=== PATIENT | female | born 1945 | race Caucasian/White ===

== ENCOUNTER 2020-06-27 06:00 | Day surgery (SDC) | payer MEDICARE, SELFPAY ==
[2020-06-20 10:19] VITALS: BMI 29.9
--- NOTE | 2020-06-25 15:37 | MHC.SHP ---
Pre-Procedural Eval Section A The patient is an INPATIENT: No Changes since office visit: No Cold of Flu in the past 2 weeks, No New Medical Problems, No Changes in Medication and No Patient answered all questions The History & Physical has been completed within 30 days and I have reviewed it.: Yes Section B Chief Complaint: HALLUX RIGHT FOOT,HAMMER TOE Allergies: Allergies Allergy/AdvReac Type Severity Reaction Status Date / Time adhesive tape AdvReac Itching Verified 06/20/20 10:17 erythromycin base AdvReac headache, Verified 06/20/20 10:17 Vomiting Plan Patient has been examined and remains a candidate for the planned procedure
--- NOTE | 2020-06-26 12:34 | HO.ANESPROP2 ---
Documented by User: Amy Deutsch 06/26/20 12:43 HPI - Anesthesia Eval Consult details Narrative: 74yo F for Bunionectomy,Right Tailors,Hammertoe right 5th,Exostosis right 5th DIPJ PCP cleared PMFSH Past Medical History Medical History HTN (hypertension) Hypothyroidism No history of cellulitis Surgical History Surgical History H/O cardiac catheterization Hx of appendectomy Hx of bilateral breast reduction surgery Hx of bilateral cataract extraction Hx of cholecystectomy Social History Social History Are you a primary animal care technician to a significant other at home: No Do you presently have visiting nurse or other home services: No Smoking Status: Never smoker Second Hand Smoke Exposure: No Use of substances other than those prescribed or required for medical reasons: No Have you been hit, kicked, punched, or otherwise hurt by someone within the past year? If so, by whom?: No Advance Directives: No Advance Directives Information Provided: No Advance Directives on File: No Recently lost weight without trying: No Meds Allergies Allergy/AdvReac Type Severity Reaction Status Date / Time adhesive tape AdvReac Itching Verified 06/20/20 10:17 erythromycin base AdvReac headache, Verified 06/20/20 10:17 Vomiting Home Medications Medication Instructions Recorded Confirmed Type levothyroxine 100 mcg PO DAILY 06/20/20 06/20/20 History lisinopril 5 mg PO DAILY 06/20/20 06/20/20 History Exam Exam Date and Time: June 26, 2020 1234 Height,Weight and Vital Signs: Height 5 ft 3.5 in Weight 78.018 kg Pertinent Lab Results Pertinent Lab Results: 05/28/20 CBC and BMP WNL, except platelets low @ 118 from outside provider Narrative Narrative: EKG 06/12/20: SR, LAD, Incomplete RBBB, Nonspecific anterior T wave changes, low volt QRS Assessment and Plan Assessment Anesthesia Assessment: Chart Reviewed Documented by User: Angeline Saenz 06/27/20 07:29 PMFSH Past Medical History Medical History HTN (hypertension) Hypothyroidism No history of cellulitis Surgical History Surgical History H/O cardiac catheterization Hx of appendectomy Hx of bilateral breast reduction surgery Hx of bilateral cataract extraction Hx of cholecystectomy Social History Social History Are you a primary animal care technician to a significant other at home: No Do you presently have visiting nurse or other home services: No Smoking Status: Never smoker Second Hand Smoke Exposure: No Use of substances other than those prescribed or required for medical reasons: No Have you been hit, kicked, punched, or otherwise hurt by someone within the past year? If so, by whom?: No Advance Directives: No Advance Directives Information Provided: No Advance Directives on File: No Recently lost weight without trying: No Meds Allergies Allergy/AdvReac Type Severity Reaction Status Date / Time adhesive tape AdvReac Itching Verified 06/20/20 10:17 erythromycin base AdvReac headache, Verified 06/20/20 10:17 Vomiting Home Medications Medication Instructions Recorded Confirmed Type levothyroxine 100 mcg PO DAILY 06/20/20 06/20/20 History lisinopril 5 mg PO DAILY 06/20/20 06/20/20 History Exam Airway Mallampati Class: II TM Dist: >3cm Neck ROM: Full Loose/Missing/Broken Teeth: No Heart: RRR Lungs: CTA
--- NOTE | 2020-06-26 15:30 | HP_ITS ---
DATE OF SERVICE: 06/27/2020 PROPOSED DATE OF SURGERY: June 27, 2020. PREOPERATIVE DIAGNOSES: 1. Hallux rigidus, right first MTP joint. 2. Hammertoe, right fifth toe. 3. Exostosis, right 5th toe, DIP joint. PLANNED PROCEDURES: 1. Guzmán bunionectomy of the right foot. 2. Hammertoe repair of the right fifth toe. 3. Condylectomy on the medial aspect of the right 5th DIP joint. PLANNED ANESTHESIA: MAC anesthesia. 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 These conditions have been present over the past several years and have progressively worsened. Her pain is aggravated by shoe gear and walking activity. Conservative treatment consisting of altered shoe gear as well as accommodative padding has proven ineffective and the patient is now requesting surgical treatment. PAST MEDICAL HISTORY: Remarkable for thyroid disease, headaches, history of gallbladder disease, arthritis. CURRENT MEDICATIONS: The patient is taking levothyroxine 100 mcg daily and also taking calcium with vitamin D supplement. ALLERGIES: THE PATIENT HAS NEGATIVE REACTION TO ERYTHROMYCIN, BIAXIN, Z-MAHSA. FAMILY HISTORY: Significant for history of arthritis, diabetes, hypertension. SOCIAL HISTORY: The patient relates she quit smoking in 2018, denies use of any recreational drugs. The patient does drink 1 to 2 cups of coffee per day and relates occasional alcohol consumption. PODIATRIC PHYSICAL EXAMINATION: VASCULAR EXAM: The patient displays +2/4 pulse of both the DP and PT arteries bilateral with normal cap refill time noted bilateral feet. NEUROLOGIC EXAM: Reveals intact sensation bilateral. DERMATOLOGIC EXAM: Reveals keratotic lesion located between the right fourth and fifth toes. Otherwise, skin is intact. ORTHOPEDIC EXAM: Reveals hammertoe contracture, bilateral second through fifth toes, arthritic bunion deformity with painful limited motion bilateral first metatarsophalangeal joint. The patient was seen in my office most recently on June 11, 2020. Preoperative informed consent was obtained from the patient that day. The patient has been instructed of all potential risks and complications and is compliant with surgical treatment. Preoperative medical clearance will be provided by the patient's primary care physician, Dr. Laguerre. DONNA Madrigal/JERSON / [id number] ROSALES
[2020-06-27] VITALS (7 sets, daily range): BP systolic 76–107; BP diastolic 45–79; PULSE 62–77; RESP 16; TEMP 36.1–36.7; O2SAT 95–98
[2020-06-27] MEDS: Lactated Ringers 1,000 ML 100 ML IVCONT (06:44)
[2020-06-27] MEDS: ceFAZolin Sodium/Dextrose,Iso 2 GM/50 ML PIGGYBACK IV (06:44)
--- NOTE | 2020-06-27 07:29 | HO.ANESPROP2 ---
[facility] Past Medical History Medical History HTN (hypertension) Hypothyroidism No history of cellulitis Surgical History Surgical History H/O cardiac catheterization Hx of appendectomy Hx of bilateral breast reduction surgery Hx of bilateral cataract extraction Hx of cholecystectomy Social History Social History Are you a primary director of managed care to a significant other at home: No Do you presently have visiting nurse or other home services: No Smoking Status: Never smoker Second Hand Smoke Exposure: No Use of substances other than those prescribed or required for medical reasons: No Have you been hit, kicked, punched, or otherwise hurt by someone within the past year? If so, by whom?: No Advance Directives: No Advance Directives Information Provided: No Advance Directives on File: No Recently lost weight without trying: No Meds Allergies Allergy/AdvReac Type Severity Reaction Status Date / Time adhesive tape AdvReac Itching Verified 06/20/20 10:17 erythromycin base AdvReac headache, Verified 06/20/20 10:17 Vomiting Home Medications Medication Instructions Recorded Confirmed Type levothyroxine 100 mcg PO DAILY 06/20/20 06/20/20 History lisinopril 5 mg PO DAILY 06/20/20 06/20/20 History Exam Exam Date and Time: June 27, 2020 0729 Height,Weight and Vital Signs: Height 5 ft 3.5 in Weight 78.018 kg Last Vital Signs Temp 98.1 F 06/27/20 06:32 Pulse 77 06/27/20 06:32 Resp 16 06/27/20 06:32 BP 107/79 06/27/20 06:32 Pulse Ox 95 06/27/20 06:32 Assessment and Plan Assessment Anesthesia Assessment: Anesthesia Plan Discussed, PAT Visit and Chart Reviewed Final Anesthetic Review NPO: Yes ASA Class: III Final Preanesthetic Review: No Changes in Pt Med Stat, Meds/Allgs Chart Reviewed, Consent Obtained/Reviewed and Anes Risks/Benef Reviewed Patient Risk: Low Procedure Risk: Low Anesthetic Plan Anesthetic Plan: MAC: Disposition: Standard PACU
--- NOTE | 2020-06-27 08:35 | P.BOP_ITS ---
Brief Operative Note Date of procedure: 06/27/20 Pre-op diagnosis: Hallux rigidus right, hammertoe right fifth toe, exostosis right 5th dipj Post-op diagnosis: same Procedure: Blanc bunionectomy right, hammertoe repair right 5th toe, condyle ctomy right 5th dipj Surgeon: Lowell Jacome Anesthesia: MAC [employer] Liaison Officer: Miranda Galo Estimated blood loss (mL): 1.0 Tourniquet time (min): 37 Condition: stable Disposition: PACU
--- NOTE | 2020-06-27 08:38 | MHC.SHP ---
Pre-Procedural Eval Section B Chief Complaint: HALLUX RIGHT FOOT,HAMMER TOE Allergies: Allergies Allergy/AdvReac Type Severity Reaction Status Date / Time adhesive tape AdvReac Itching Verified 06/20/20 10:17 erythromycin base AdvReac headache, Verified 06/20/20 10:17 Vomiting Plan Patient has been examined and remains a candidate for the planned procedure
--- NOTE | 2020-06-27 09:55 | HO.POSTANES ---
Post Anesthesia Evaluation Post Anesthesia Evaluation Vital Signs: Vital Signs Temp Pulse Resp BP Pulse Ox 06/27/20 09:23 97.4 F 64 16 98 06/27/20 09:08 62 16 103/62 98 06/27/20 08:53 65 16 93/57 L 97 06/27/20 08:48 64 16 94/55 L 97 06/27/20 08:43 64 16 83/51 L 98 06/27/20 08:38 96.9 F 65 16 76/45 L 98 06/27/20 06:32 98.1 F 77 16 107/79 95 Anesthesia: Monitored Mental Status: Awake Pain Control: Satisfactory Nausea/Vomiting: None Hydration: Adequate Anesthesia-Related Issues: No Anes. Related Issues
--- NOTE | 2020-07-01 14:02 | OP_ITS ---
SURGEON: Lowell Jacome DPM PREOPERATIVE DIAGNOSIS: 1. Hallux rigidus, right first metatarsophalangeal joint. 2. Hammertoe, right fifth toe. 3. Exostosis medial of right 5th toe distal interphalangeal joint. POSTOPERATIVE DIAGNOSIS: 1. Hallux rigidus, right first metatarsophalangeal joint. 2. Hammertoe, right fifth toe. 3. Exostosis medial of right 5th toe distal interphalangeal joint. PROCEDURE PERFORMED: 1. Su bunionectomy of the right foot. 2. Hammertoe repair, right fifth toe. 3. Condylectomy medial of right 5th toe distal interphalangeal joint. ESTIMATED BLOOD LOSS: COMPLICATIONS: ANESTHESIA: Consisted of local administration of a total of 15 cc of an equal mix of 2% lidocaine with epinephrine 1:100,000 of 0.5% Marcaine plain. Intravenous sedation was provided by the Anesthesia Department. ANESTHESIOLOGIST: Dr. Oden. Supriya ASSISTANTS: Miranda Galo DPM SPECIMENS: INTRODUCTION: The patient was brought to the operating room, placed on the operating table in the supine position. After having been suitably anesthetized with local infiltrative anesthesia, the right lower extremity was then prepped and draped in usual sterile manner. Please note that prior to the start of the procedures, the right foot was exsanguinated utilizing an Esmarch bandage and right ankle tourniquet was inflated to 250 mmHg pressure for the duration of the procedures. SU BUNIONECTOMY OF THE RIGHT FOOT: Attention was directed to the dorsal aspect of the right first metatarsophalangeal joint, where an incision of approximately 6.5 cm in length was effected centered over the dorsum of the right first metatarsophalangeal joint. The incision was deepened in the same plane and hemostasis was acquired as necessary. The skin margins were underscored and retracted. A dorsal linear capsule incision was then effected, and the capsule and periosteum was underscored and retracted. Please note that there was a large shelf of bone along both the dorsal aspect of the first metatarsal head as well as base of the proximal phalanx. Utilizing sagittal saw, the hypertrophic bone and diseased cartilage was gradually remodeled and removed from both the first metatarsal head and base of the proximal phalanx. The wound was irrigated. The first intermetatarsal space was exposed via blunt and sharp dissections. A lateral capsulotomy and adductor tenotomy were performed via sharp dissection. Then utilizing a power reciprocating rasp, the remaining bone was rasped smooth. The wound was irrigated. Bone wax was used to pack the exposed cancellous bone. The capsule was closed with 3-0 Vicryl. One half of the 2 cm x 3 cm AmnioFix was placed inside the capsule during closure. The second half was placed in subcutaneous tissue, which was closed with 4-0 Maxon subcuticular. A 4-0 nylon was then utilized to reinforce the skin margins as well. HAMMERTOE REPAIR OF RIGHT FIFTH TOE: Attention was directed to the dorsal lateral aspect of the right fifth toe. Incision approximately 2 cm length was effected centered over the dorsum of the right fifth toe proximal interphalangeal joint. Incision was deepened in same plane and hemostasis was acquired as necessary. The skin margins were underscored and retracted. A transverse incision was effected through the extensor tendon complex at the level of the PIP joint. The extensor tendon was underscored and retracted. The hypertrophic head of the proximal phalanx was delivered from the wound and then this head was resected utilizing a sagittal saw. The wound was irrigated. The extensor tendon was coapted and maintained utilizing 3-0 Vicryl. Skin margins were closed with 4-0 nylon. CONDYLECTOMY OF MEDIAL RIGHT 5TH TOE DISTAL INTERPHALANGEAL JOINT: An incision approximately 1.5 cm length was effected on the medial aspect of the right 5th toe distal interphalangeal joint just plantar to the medial nail plate and nail fold. The incision was deepened down to bone and the periosteum was underscored and retracted. Utilizing a power drill, the hypertrophic bone from the medial aspect of the right 5th toe distal interphalangeal joint and base of the distal phalanx was resected. The wound was irrigated. The skin margins were closed with 4-0 nylon. CONCLUSION: At the conclusion of these procedures, the operative sites were injected with a total of 5 mL Marcaine, 0.5% plain, 1 mL of dexamethasone phosphate. Sterile Xeroform was applied to the right 5th toe, 1 inch Conform also to the 5th toe. Sterile Betadine-soaked gauze, Kerlix, fluffs, and 4 inch Conform were applied to the remainder of the foot. The patient tolerated surgery and anesthesia well and left the operating room via cart to the recovery room after the tourniquet was deflated and normal blood flow was reestablished to the right lower extremity. FINAL DISPOSITION: The patient is discharged home with instructions for self-care and include the followin. To keep the dressings dry, clean, and intact. 2. To keep the right leg elevated with ice above the ankle or in the popliteal fossa. 3. To take all medications as prescribed. 4. To limit activity to minimum. 5. To always use surgical shoe and crutches when ambulating. 6. To contact Dr. Jacome if any questions or problems arise. 7. Lastly, the patient already has prescriptions at home for ibuprofen 600 mg 1 p.o. t.i.d. p.c., gabapentin 300 mg total #10, 1 p.o. daily at bedtime, oxycodone 5 mg total #20, 1 p.o. q.6h p.r.n. pain. DONNA Madrigal/JERSON / [id number]
== END 2020-06-27 23:59 | disposition home or self-care (01) ==
PROVIDERS: PCP Internal Medicine Endocrinology, Diabetes & Metabolism; Visit Provider Podiatrist
PROC: (CPT 28292; principal; 2020-06-27 07:30)
DX: M20.21 Hallux rigidus, right foot (principal); M20.41 Other hammer toe(s) (acquired), right foot; M25.774 Osteophyte, right foot; I10 Essential (primary) hypertension; Z79.899 Other long term (current) drug therapy; Z88.1 Allergy status to other antibiotic agents; Z91.040 Latex allergy status
CPT/HCPCS: 28292; 28285; 28153; 88304; 88311; J0690; J1100; J2250; J3010; Q4100

== ENCOUNTER 2020-09-26 09:00 | Outpatient (RCR) | payer MEDICARE, SELFPAY ==
[2020-08-06 15:06] VITALS: BP 131/79
== END 2020-09-26 13:16 | disposition other institution (70) ==
LOC: HO.PT 09:00
PROVIDERS: Visit Provider Podiatrist
DX: M20.21 Hallux rigidus, right foot (principal)
CPT/HCPCS: 97110; 97140; 97150; 97161; 97530

== ENCOUNTER 2021-06-03 04:29 | Emergency (ER) | payer MEDICARE, SELFPAY ==
--- NOTE | ~2021-06-03 | XR_ITS ---
EXAMINATION: XR CHEST CLINICAL INFORMATION: Cough and shortness of breath COMPARISON: None TECHNIQUE: Frontal view of the chest was obtained. FINDINGS: Normal symmetric lung volumes. No parenchymal consolidation. No pleural effusion. No pneumothorax. Cardiomediastinal silhouette and pulmonary vascularity are within normal limits. Aorta is atherosclerotic. No acute osseous abnormalities. XR/XR chest 1V IMPRESSION: No acute findings
[2021-06-03 04:40] VITALS: BP 128/80; PULSE 104; RESP 20; TEMP 36.4; O2SAT 95; BMI 29.9
[2021-06-03 05:31] LABS: Strep A Nucleic Acid Negative (Negative)
[2021-06-03 05:35] LABS: COVID-19 Test Negative (Negative); IDNOW Serial# 9DD0AD1C
--- NOTE | 2021-06-03 07:14 | ED_ITS ---
HPI - URI/Sore Throat General Chief Complaint: Upper Respiratory Symptoms Stated Complaint: Sore throat,Cough,congestion Time Seen by Provider: 06/03/21 07:02 Source: patient Mode of arrival: ambulatory Limitations: no limitations History of Present Illness MD elicited complaint: cough and sore throat Onset (ago): day(s) (5) Consistency: progressively worsening Severity: moderate Description of mucous: clear Able to tolerate fluids by mouth: Yes Exacerbating factors: swallowing Relieving factors: nothing Associated symptoms: rhinorrhea, sore throat and cough Treatments prior to arrival: none Related Data Home Medications Medication Instructions Recorded Confirmed levothyroxine 100 mcg capsule 100 mcg PO DAILY 06/20/20 06/20/20 lisinopril 5 mg tablet 5 mg PO DAILY 06/20/20 06/20/20 Previous Rx's Medication Instructions Recorded amoxicillin 500 mg tablet 500 mg PO BID 10 Days #20 tab 06/03/21 Allergies Allergy/AdvReac Type Severity Reaction Status Date / Time adhesive tape AdvReac Itching Verified 06/20/20 10:17 erythromycin base AdvReac headache, Verified 06/20/20 10:17 Vomiting Review of Systems Review of Systems: Constitutional : no Fever, no Chills, no fatigue, no Mal aise ENT/Mouth : positive sore throat, positive runny nose Eyes: No Discharge Cardiovascular : No Chest Pain, No SOB Respiratory : pos Cough, No Sputum Gastrointestinal : No Nausea, No Vomiting, No Diarrhea Genitourinary : No Dysuria, No Urinary Frequency Musculoskeletal : no Myalgia Skin : No rash Neuro : No Headache PMFSH Past Medical History Attestation statement: The following information was validated with the patient. Medical History HTN (hypertension) Hypothyroidism No history of cellulitis Surgical History H/O cardiac catheterization Hx of appendectomy Hx of bilateral breast reduction surgery Hx of bilateral cataract extraction Hx of cholecystectomy Social History Social History Are you a primary ambulatory care coordinator to a significant other at home: No Do you presently have visiting nurse or other home services: No Second Hand Smoke Exposure: No Advance Directives: No Advance Directives Information Provided: No Physical Exam Vital Signs: Vital Signs: Last Vital Signs Temp 97.5 F 06/03/21 04:40 Pulse 104 H 06/03/21 04:40 Resp 20 06/03/21 04:40 BP 128/80 06/03/21 04:40 Pulse Ox 95 06/03/21 04:40 Body Mass Index 29.9 Appearance: Alert. Oriented X3. No acute distress. Eyes: Pupils equal, round and reactive to light. ENT: Pharynx moderate erythema with mild edema no exudates, uvula midline, normal voice Neck: Normal inspection. Neck supple. CVS: Normal heart rate and rhythm. Pulses normal. Respiratory: No respiratory distress. Breath sounds normal. Abdomen: Soft and nontender. Skin: Skin warm and dry. Normal skin color. Normal skin turgor. Extremities: No lower extremity edema. No calf ttp Neuro: Oriented X 3. No motor deficit. No sensory deficit. MDM - URI/Sore Throat MDM Narrative Medical decision making narrative: 75 yo female with sore throat and cough since VS stable no hypoxia, no CP/no sick contacts. Suspect pharyngitis. She has clear lungs will start on amoxicillin and refer to PCP. CXR and COVID swab negative prior to evaluation Lab Data Labs: Lab Results 06/03/21 06/03/21 Range/Units 05:15 05:19 COVID-19 (KAYLEN) Negative (Negative) COVID-19 Clin Com See Note S. pyogenes GrpA WILVER Negative (Negative) Discharge Plan Discharge Clinical Impression: Pharyngitis Qualifiers: Pharyngitis/tonsillitis etiology: other specified organisms Qualified Code(s): J02.8 - Acute pharyngitis due to other specified organisms Patient Disposition: Home, Self-Care Instructions: Pharyngitis (ED) Additional Instructions: return to ED for any worsening symptoms or concerns follow up with PCP in 2 days if not better Prescriptions: New amoxicillin 500 mg tablet 500 mg PO BID 10 Days Qty: 20 RF: 0 No Action lisinopril 5 mg Tablet 5 mg PO DAILY RF: 0 levothyroxine 100 mcg Capsule 100 mcg PO DAILY RF: 0
== END 2021-06-03 07:44 | disposition home or self-care (01) ==
PROVIDERS: Emergency Provider Emergency Medicine; PCP Internal Medicine Endocrinology, Diabetes & Metabolism
DX: J02.8 Acute pharyngitis due to other specified organisms (principal); R05.9 Cough, unspecified; J34.89 Other specified disorders of nose and nasal sinuses; Z20.822 Contact with and (suspected) exposure to COVID-19; Z79.899 Other long term (current) drug therapy
CPT/HCPCS: 36415; 71045; 87635; 87651; 99283; 99284

== ENCOUNTER 2022-05-15 09:05 | Day surgery (SDC) | payer MEDICARE, SELFPAY ==
[2022-05-12 13:15] VITALS: BMI 30.2
--- NOTE | 2022-05-14 13:40 | HO.ANESPROP2 ---
Documented by User: Amy Deutsch NP 05/14/22 13:41 HPI - Anesthesia Eval Consult details Narrative: 76yo F for Colonoscopy [facility] Past Medical History Medical History H/O scarlet fever No history of cellulitis Hypothyroidism HTN (hypertension) Surgical History Surgical History History of bunionectomy H/O colonoscopy Hx of cholecystectomy Hx of bilateral breast reduction surgery Hx of appendectomy Hx of bilateral cataract extraction H/O cardiac catheterization Social History (System 06/15/23 @ 15:01 by Cheyanne Pillai) Household Members: Spouse Are you a primary long term care phlebotomist to a significant other at home: No Do you presently have visiting nurse or other home services: No Patient Tobacco Use Status: Former Tobacco user Quit Date: 1967 Smoked in Last 30 Days: No Second Hand Smoke Exposure: No Use of substances other than those prescribed or required for medical reasons: No Advance Directives: No Meds Allergies Allergy/AdvReac Type Severity Reaction Status Date / Time adhesive tape AdvReac Itching Verified 06/15/23 15:01 erythromycin base AdvReac headache, Verified 06/15/23 15:01 Vomiting Home Medications Medication Instructions Recorded Confirmed Last Taken Type levothyroxine 100 mcg capsule 100 mcg PO DAILY 06/20/20 05/12/22 05/15/22 History lisinopril 5 mg tablet 5 mg PO DAILY 06/20/20 06/20/20 Unknown History losartan 50 mg tablet 1 tab PO DAILY 05/12/22 05/12/22 05/15/22 History Exam Exam Date and Time: May 14, 2022 1340 Height,Weight and Vital Signs: Height 5 ft 3.5 in Weight 78.471 kg Assessment and Plan Assessment Anesthesia Assessment: Chart Reviewed Documented by User: Fili Squires MD 07/16/23 00:37 [facility] Past Medical History Medical History H/O scarlet fever No history of cellulitis Hypothyroidism HTN (hypertension) Functional capacity: independent ambulation Family History Family history of problems with anesthesia: No Surgical History Surgical History History of bunionectomy H/O colonoscopy Hx of cholecystectomy Hx of bilateral breast reduction surgery Hx of appendectomy Hx of bilateral cataract extraction H/O cardiac catheterization History of Problems with Anesthesia: No Social History (System 06/15/23 @ 15:01 by Cheyanne Pillai) Household Members: Spouse Are you a primary long term care phlebotomist to a significant other at home: No Do you presently have visiting nurse or other home services: No Patient Tobacco Use Status: Former Tobacco user Quit Date: 1967 Smoked in Last 30 Days: No Second Hand Smoke Exposure: No Use of substances other than those prescribed or required for medical reasons: No Advance Directives: No Meds Allergies Allergy/AdvReac Type Severity Reaction Status Date / Time adhesive tape AdvReac Itching Verified 06/15/23 15:01 erythromycin base AdvReac headache, Verified 06/15/23 15:01 Vomiting Home Medications Medication Instructions Recorded Confirmed Last Taken Type levothyroxine 100 mcg capsule 100 mcg PO DAILY 06/20/20 05/12/22 05/15/22 History lisinopril 5 mg tablet 5 mg PO DAILY 06/20/20 06/20/20 Unknown History losartan 50 mg tablet 1 tab PO DAILY 05/12/22 05/12/22 05/15/22 History Exam Airway Mallampati Class: II Partial: Lower Loose/Missing/Broken Teeth: Yes (Chipped , filings ) Assessment and Plan Assessment Anesthesia Assessment: Anesthesia Plan Discussed Final Anesthetic Review Family History of Problems with Anesthesia: No History of Problems with Anesthesia: No NPO: Yes ASA Class: III Final Preanesthetic Review: Meds/Allgs Chart Reviewed, Consent Obtained/Reviewed and Anes Risks/Benef Reviewed Patient Risk: Intermediate Procedure Risk: Intermediate Anesthetic Plan Anesthetic Plan: MAC: and Agree w/ Assess. and Plan Disposition: Standard PACU
--- NOTE | 2022-05-15 09:24 | MHC.SHP ---
Pre-Procedural Eval Section A Date of Service: 05/15/22 Section B Chief Complaint: screening Details of Present Illness: see H*P no changes Relevant Family History (Specify if Yes): No Relevant Social History: None Present Medications: see Short Stay Collaborative assessment Medical History: No relevant PMH History of Previous Operations: No relevant previous surgery Allergies: Allergies Allergy/AdvReac Type Severity Reaction Status Date / Time adhesive tape AdvReac Itching Verified 05/15/22 09:19 erythromycin base AdvReac headache, Verified 05/15/22 09:19 Vomiting Review of Systems Sugical H&P ROS: Negative: Constitution, Cardiovascular, Respiratory, Neurological, Psychiatric, Hem-Onc, Allergic/Immunologic, Gastrointestinal, Genitourinary, Musculoskeletal, Integumentary, Endocrine and Eyes/Ears/Nose/Throat Exam Surgical H&P Exam: Normal: HEENT, Normal: Heart, Normal: Lungs, Normal: Extremities, Normal: Abdomen, Normal: Skin and Normal: Neurological Plan Diagnosis/Plan: Unchanged I have reviewed the history and physical and performed a pertinent physical examination on my patient. No changes have occurred unless specified.
[2022-05-15 09:28] VITALS: BP 144/74; PULSE 89; RESP 16; TEMP 36.2; O2SAT 95
[2022-05-15] MEDS: Lactated Ringers 1,000 ML 100 ML IVCONT (09:43)
[2022-05-15 10:19] VITALS: BP 105/56; PULSE 69; RESP 16; TEMP 36.8; O2SAT 97
[2022-05-15 10:34] VITALS: BP 125/66; PULSE 72; RESP 17; TEMP 36.8; O2SAT 98
--- NOTE | 2022-05-15 10:36 | PM.OP ---
Brief Operative Note Date of Service: 05/15/22 Pre-op diagnosis: screening Post-op diagnosis: same Procedure: colonsocpy Surgeon: Tonio Musa Anesthesia: MAC Was an Pharmacy Picking Technician used for this Procedure?: No Estimated blood loss (mL): 0 Pathology: other Condition: stable Disposition: PACU
--- NOTE | 2022-05-15 22:34 | OP_ITS ---
SURGEON: Tonio Musa MD INDICATIONS: Colon cancer screening. PREOPERATIVE DIAGNOSIS: POSTOPERATIVE DIAGNOSIS: PROCEDURE PERFORMED: Colonoscopy to the terminal ileum with snare polypectomy on 05/15/22. ESTIMATED BLOOD LOSS: COMPLICATIONS: ANESTHESIA: ASSISTANTS: SPECIMENS: MEDICATIONS: Monitored anesthesia care. DESCRIPTION OF PROCEDURE: History and physical performed the risks and benefits of the procedure were explained to the patient. Informed consent was obtained. The patient was placed in the left lateral decubitus position. A digital rectal exam was performed and was found to be normal. The Olympus pediatric video colonoscope was introduced into the rectum and advanced to the cecum without difficulty. The cecum was identified by transillumination, palpation, and identification of the ileocecal valve. Examination was performed. The scope was removed. She tolerated the procedure well and was returned to the recovery area in stable condition. FINDINGS: The terminal ileum was examined and appeared normal. In the cecum, near the appendiceal orifice was an 8 mm sessile polyp, which was removed with a snare. There was some minor oozing at the base of the polypectomy site, which was controlled with cautery using the tip of the snare. The polyp was recovered via suction. No other polyps were identified. There was moderate sigmoid diverticulosis. Retroflexed examination showed small internal hemorrhoids. IMPRESSION: Colon polyp. RECOMMENDATION: Follow up the biopsy results. MD FARHANA Kim/JERSON / [id number] MTDD
== END 2022-05-15 11:20 | disposition home or self-care (01) ==
PROVIDERS: PCP Internal Medicine Endocrinology, Diabetes & Metabolism; Visit Provider Internal Medicine Gastroenterology
PROC: 0DJD8ZZ Inspection of Lower Intestinal Tract, Via Natural or Artificial Opening Endoscopic (ICD-10-PCS; CPT 45378; principal; 2022-05-15 10:20)
DX: Z12.11 Encounter for screening for malignant neoplasm of colon (principal); D12.0 Benign neoplasm of cecum; K57.30 Diverticulosis of large intestine without perforation or abscess without bleeding; K64.8 Other hemorrhoids; R14.0 Abdominal distension (gaseous); I10 Essential (primary) hypertension; E03.9 Hypothyroidism, unspecified; Z79.899 Other long term (current) drug therapy; Z86.19 Personal history of other infectious and parasitic diseases; Z90.49 Acquired absence of other specified parts of digestive tract; Z87.891 Personal history of nicotine dependence
CPT/HCPCS: 45385; 88305

== ENCOUNTER 2023-06-13 08:27 | Emergency (ER) | payer MEDICARE, SELFPAY ==
[2023-06-13 08:43] VITALS: BP 172/94; PULSE 109; RESP 18; TEMP 36.8; O2SAT 96; BMI 32.3
[2023-06-13 09:00] LABS: IDNOW Serial# 08D9AD1C; Strep A Nucleic Acid Positive (Negative)
[2023-06-13 09:07] LABS: COVID-19 Note N; COVID-19 Test Negative (Negative); IDNOW Serial# BCCEAD1C
--- NOTE | 2023-06-13 09:11 | ED.URI ---
HPI - URI/Sore Throat General Chief Complaint: Upper Respiratory Symptoms Stated Complaint: Strep throat Time Seen by Provider: 06/13/23 09:06 Source: patient, RN notes reviewed and old records reviewed Mode of arrival: ambulatory History of Present Illness HPI Narrative: 77-year-old female with no significant past medical history presenting to the ED complaining of sore throat since 02:00. Admits symptoms woke her up from sleep with painful swallowing. Reports URI symptoms over the past week with rhinorrhea/congestion. Denies cough, ear pain, inability to swallow, SOB, sick contacts. Recently travel to [place] at the end of April MD elicited complaint: sore throat Related Data Home Medications Medication Instructions Recorded Confirmed levothyroxine 100 mcg capsule 100 mcg PO DAILY 06/20/20 05/12/22 lisinopril 5 mg tablet 5 mg PO DAILY 06/20/20 06/20/20 losartan 50 mg tablet 1 tab PO DAILY 05/12/22 05/12/22 Previous Rx's Medication Instructions Recorded amoxicillin 500 mg tablet 500 mg PO BID 10 days #20 tabs 06/03/21 penicillin V potassium 500 mg 500 mg PO BID 10 days #20 tabs 06/13/23 tablet Allergies Allergy/AdvReac Type Severity Reaction Status Date / Time adhesive tape AdvReac Itching Verified 05/15/22 09:19 erythromycin base AdvReac headache, Verified 05/15/22 09:19 Vomiting Review of Systems Review of Systems: Constitutional: No Fever, No Chills ENT/Mouth: No Ear Pain, + Nasal Congestion, No Sinus Pain, No Hoarseness, + sore throat, + Rhinorrhea, No Swallowing Difficulty Cardiovascular: No Chest Pain, No SOB Respiratory: No Cough, No Sputum, No Wheezing Gastrointestinal: No Nausea, No Vomiting, No Abdominal pain Musculoskeletal: No joint pain, No Myalgias Skin: No Skin Lesions, No rash Neuro: No Weakness Yes all other systems are reviewed and are negative Constitutional: Constitutional: Reports as per [facility] Past Medical History Attestation statement: The following information was validated with the patient. Source: old records reviewed Medical History H/O scarlet fever No history of cellulitis Hypothyroidism HTN (hypertension) Surgical History History of bunionectomy H/O colonoscopy Hx of cholecystectomy Hx of bilateral breast reduction surgery Hx of appendectomy Hx of bilateral cataract extraction H/O cardiac catheterization Social History Social History Household Members: Spouse Are you a primary multi care technician to a significant other at home: No Do you presently have visiting nurse or other home services: No Patient Tobacco Use Status: Former Tobacco user Quit Date: 1967 Second Hand Smoke Exposure: No Advance Directives: No Physical Exam Vital Signs: Vital Signs: Last Vital Signs Temp 98.2 F 06/13/23 08:43 Pulse 109 H 06/13/23 08:43 Resp 18 06/13/23 08:43 BP 172/94 H 06/13/23 08:43 Pulse Ox 96 06/13/23 08:43 O2 Del Method Room Air 06/13/23 08:43 BMI result Body Mass Index 32.3 Const: General: cooperative, healthy appearing and no acute distress Orientation/consciousness: patient oriented x3 Limitations: no limitations HEENT: Head: Yes normal to inspection and Yes atraumatic Ears: hearing grossly normal bilaterally, external ears normal, TM's normal bilaterally and mastoids normal General nose exam: Normal external nose present Face and sinus: Yes normal facial exam Mouth: no drooling Throat: Yes uvula midline, Yes abnormal tonsil (+ bilateral tonsillar erythema/swelling), No peritonsillar mass, Yes posterior oropharynx abnormal (Erythematous), No uvula laterally displaced and No uvular edema Eyes: General: appearance normal, both eyes and all related structures EOM: EOMs intact bilaterally Neck: Neck: Yes normal visual inspection, Yes no meningeal signs and Yes lymphadenopathy (Submandibular) Resp: Effort & Inspection: normal respiratory effort, no respiratory distress and no stridor Auscultation: clear to auscultation bilaterally and no wheezes Cardio: Rate: regular rate Heart sounds: S1 normal heart sound present and S2 normal heart sound present Skin: Rashes: no rashes Wounds: no wounds Neuro: General: patient oriented x3, tone normal and no meningeal signs Cranial nerves: Yes CN's II-XII intact bilaterally Gait exam (Neuro): Normal gait present Extrem: General: Yes normal to inspection Course Course Course Narrative: -rapid strep positive -COVID negative Results discussed with patient including worrisome signs and symptoms and strict return precautions, and when to return to the emergency department. They verbalized understanding and feel safe for discharge at this time. Medical Decision Making Medical Decision Making [facility] Narrative: 77-year-old female with no significant past medical history presenting to the ED complaining of sore throat since 02:00. Admits symptoms woke her up from sleep with painful swallowing. On exam mildly tachycardic likely from pain, NAD, nontoxic appearing, posterior oropharyngeal in bilateral tonsillar erythema with swelling noted. Uvula midline, handling secretions, talking in complete sentences/no respiratory distress. Concern for viral illness versus pharyngitis. Low suspicion for CONSTRUCTION DRILLER/retropharyngeal abscess or pneumonia Plan: COVID-19 testing, rapid strep Please refer to course for remaining clinical decision making, interpretation of labs/imaging results, and discussions with consultants and/or family members. Differential Diagnosis Differential Diagnoses: The differential diagnosis associated with the presentation includes As above Lab Data [facility] Lab Attestation statement: I reviewed the patient's lab results. Labs: Lab Results 06/13/23 Range/Units 08:48 COVID-19 (KAYLEN) Negative (Negative) COVID-19 Clin Com N S. pyogenes GrpA WILVER Positive A (Negative) External Record Review External record reviewed: Inpatient record, Office record, Outpatient record, Prior outpatient labs, Prior outpatient radiology, Primary care record and Outside ED record Tests considered The following testing was considered but not selected: As above Prescription Management I considered prescription management with: Pain Medication and Antibiotic Discharge Plan Discharge Clinical Impression: Acute streptococcal pharyngitis Patient Disposition: Home, Self-Care Instructions: Strep Throat (DC) Additional Instructions: You have strep throat You tested negative for COVID Penicillin V is an antibiotic please take as prescribed Gargle with warm salt water Take Tylenol Motrin as needed Follow-up with your doctor If symptoms persist or worsen you develop difficulty/inability to swallow or shortness of breath return to the ED Prescriptions: New penicillin V potassium 500 mg tablet 500 mg PO BID 10 Days Qty: 20 0RF No Action lisinopril 5 mg Tablet 5 mg PO DAILY levothyroxine 100 mcg Capsule 100 mcg PO DAILY amoxicillin 500 mg tablet 500 mg PO BID 10 Days Qty: 20 0RF losartan 50 mg tablet 1 tab PO DAILY Referrals: Jerrell Laguerre MD [Primary Care Provider] -
[2023-06-13 09:18] VITALS: BP 155/94; PULSE 101; RESP 18; TEMP 37.3; O2SAT 98; O2SAT 99
== END 2023-06-13 09:26 | disposition home or self-care (01) ==
PROVIDERS: Emergency Provider Emergency Medicine; PCP Internal Medicine Endocrinology, Diabetes & Metabolism
DX: J02.0 Streptococcal pharyngitis (principal); Z20.822 Contact with and (suspected) exposure to COVID-19; Z20.828 Contact with and (suspected) exposure to other viral communicable diseases
CPT/HCPCS: 87635; 87651; 99283; 99284

== ENCOUNTER 2024-12-22 17:25 | Emergency (ER) | payer MEDICARE, SELFPAY ==
[2024-12-22 17:57] VITALS: BP 170/82; PULSE 80; RESP 16; TEMP 37.1; O2SAT 95; BMI 34.9
--- NOTE | 2024-12-22 18:01 | ED.GENADULT ---
HPI - General Adult General Chief complaint: General Medical Stated complaint: ? sinus infection Time Seen by Provider: 12/22/24 18:01 Source: patient Mode of arrival: ambulatory Limitations: no limitations History of Present Illness ED Provider: wendy obando np HPI narrative: Patient is a 78-year-old female who presents emergency department for evaluation. She states over the past week she has been experiencing rhinorrhea/nasal congestion. She has also been experiencing pain to the left side of her face localized to the lower cheek/upper dental region sensitive to touch. States that she has been seen by her dental provider as well and there was no evidence of infection or dental abscess causing this pain. She denies associated fevers, chills, headaches, ear pain, tinnitus. She states this has occurred once in the past a few years ago, symptoms lasted about 1 week before self-resolving. Related Data Home Medications ?Medication ?Instructions ?Recorded ?Confirmed levothyroxine 100 mcg capsule 100 mcg PO DAILY 06/20/20 05/12/22 lisinopril 5 mg tablet 5 mg PO DAILY 06/20/20 06/20/20 losartan 50 mg tablet 1 tab PO DAILY 05/12/22 05/12/22 Previous Rx's ?Medication ?Instructions ?Recorded amoxicillin 500 mg tablet 500 mg PO BID 10 days #20 tabs 06/03/21 penicillin V potassium 500 mg 500 mg PO BID 10 days #20 tabs 06/13/23 tablet amoxicillin 875 mg-potassium 1 tab PO BID #14 tabs 12/22/24 clavulanate 125 mg tablet Allergies Allergy/AdvReac Type Severity Reaction Status Date / Time adhesive tape AdvReac Itching Verified 12/22/24 18:01 erythromycin base AdvReac headache, Verified 12/22/24 18:01 Vomiting Review of Systems Review of Systems: Yes all other systems are reviewed and are negative PMFSH Past Medical History Attestation statement: The following information was validated with the patient. Source: old records reviewed Medical History H/O scarlet fever No history of cellulitis Hypothyroidism HTN (hypertension) Surgical History History of bunionectomy H/O colonoscopy Hx of cholecystectomy Hx of bilateral breast reduction surgery Hx of appendectomy Hx of bilateral cataract extraction H/O cardiac catheterization Social History Social History (System 06/15/23 @ 15:01 by Cheyanne Pillai) Household Members: Spouse Are you a primary career development associate to a significant other at home: No Do you presently have visiting nurse or other home services: No Patient Tobacco Use Status: Former Tobacco user Second Hand Smoke Exposure: No Advance Directives: No Advance Directives Information Provided: No Do you have a plan to hurt others: No Plan Physical Exam ED Vital Signs: Vital Signs - 24 hr 12/22/24 17:57 12/22/24 18:04 Temperature 98.8 F 98.8 F Pulse Rate 80 80 Respiratory Rate 16 16 Blood Pressure 170/82 H 170/82 H Pulse Oximetry 95 95 Oxygen Delivery Method Room Air Room Air BMI result Body Mass Index 34.9 Appearance: Alert.?Oriented to person, place and time. No acute distress.?Normal affect. Eyes: Pupils equal, round and reactive to light.? ENT: Pharynx normal.??TM normal bilaterally. Left maxillary sinus tenderness upon palpation. Neck: Normal inspection.? Neck supple.?? CVS: Heart sounds normal. Normal heart rate and rhythm.? Pulses normal.?? Respiratory: No respiratory distress.? Lung sounds clear to auscultation bilaterally?? Skin: Skin warm and dry.? Normal skin color.? Neuro: Moves all extremities spontaneously. Sensation intact bilaterally. Ambulates with normal steady gait. Medical Decision Making Medical Decision Making MDM Narrative: Patient is a 78 year old female who presents emergency department for evaluation of pain to the left upper mouth/cheek as per HPI. Examination is concerning for sinusitis given left maxillary sinus tenderness upon palpation, given the quality of her pain, I did discuss with the potential for trigeminal neuralgia involving the mandibular branch. No evidence of herpes zoster, recent concerning symptoms to suggest a post herpetic neuralgia, no trauma. Given her accompanying nasal symptoms, will treat with a course of antibiotics. Advise if she continues to have persisting symptoms, she should have close follow-up with your primary care doctor. Reviewed strict return precautions. All questions answered Differential Diagnosis Differential Diagnoses: The differential diagnosis associated with the presentation includes (Sinusitis, trigeminal neuralgia, dental infection/abscess) External Record Review External record reviewed: Outpatient record Prescription Management I considered prescription management with: Antibiotic Discharge Plan Discharge Clinical Impression: Acute maxillary sinusitis Patient Disposition: Home, Self-Care Instructions: Sinusitis (ED) Additional Instructions: You may also perform nasal sinus rinses with [id number] products such as Neti pot be certain that you are only using distilled/sterile water and not tap water from the sink. As discussed, if your symptoms continue despite completing the course of antibiotics you should follow-up closely with your primary care doctor, you may discuss with them nerve related pain such as trigeminal neuralgia, given your prior experience with this as well. You may return back to emergency department any new or worsening symptoms or concerns. Prescriptions: New amoxicillin-pot clavulanate 875-125 mg tablet 1 tab PO BID Qty: 14 0RF No Action lisinopril 5 mg Tablet 5 mg PO DAILY levothyroxine 100 mcg Capsule 100 mcg PO DAILY amoxicillin 500 mg tablet 500 mg PO BID 10 Days Qty: 20 0RF losartan 50 mg tablet 1 tab PO DAILY penicillin V potassium 500 mg tablet 500 mg PO BID 10 Days Qty: 20 0RF Referrals: Jerrell Laguerre MD [Primary Care Provider] - Interventions: ED Discharge Assessment Last Done: 12/22/24 18:04 Print Language: Sami
[2024-12-22 18:04] VITALS: BP 170/82; PULSE 80; RESP 16; TEMP 37.1; O2SAT 95
== END 2024-12-22 18:10 | disposition home or self-care (01) ==
PROVIDERS: Emergency Provider Emergency Medicine; PCP Internal Medicine Endocrinology, Diabetes & Metabolism
DX: J01.00 Acute maxillary sinusitis, unspecified (principal); J34.89 Other specified disorders of nose and nasal sinuses
CPT/HCPCS: 99282; 99283

== ENCOUNTER 2025-04-12 12:48 | Outpatient (AMB) | payer MEDICARE, SELFPAY ==
--- NOTE | 2025-04-12 12:50 | MHC.OFFVIS ---
Intake Visit Reasons: CRAMPING LOWER LIMBS Allergies adhesive tape Adverse Reaction (Verified 12/22/24 18:01) Itching erythromycin base Adverse Reaction (Verified 12/22/24 18:01) headache, Vomiting Medication List - Last Reconciled 04/12/25 by Zach Burden MD amoxicillin 500 mg PO BID 10 days amoxicillin-pot clavulanate 875-125 mg 1 tab PO BID levothyroxine 100 mcg PO DAILY lisinopril 5 mg PO DAILY losartan 1 tab PO DAILY penicillin V potassium 500 mg PO BID 10 days HPI Comments Details: The patient is a 79-year-old female presenting with trigeminal neuralgia. She reports experiencing sharp, electrical-like pain localized to the left upper gum. This condition first manifested a few years ago, with the pain resolving on its own, but reappeared in October. The patient notes that the pain intensifies with activities like eating and talking, leading to significant difficulty with eating for extended periods. She has sought relief through sapr-hyr-kmpdrgq medications without success. There is an absence of pain during sleep. A previous encounter suggested trigeminal neuralgia, confirmed by her own research. The patient has not received imaging studies or prescription pain management at this time. [facility] Medical History (Updated 04/12/25 @ 13:10 by Zach Burden MD) Cramp of both lower extremities H/O scarlet fever No history of cellulitis Hypothyroidism HTN (hypertension) Surgical History History of bunionectomy H/O colonoscopy Hx of cholecystectomy Hx of bilateral breast reduction surgery Hx of appendectomy Hx of bilateral cataract extraction H/O cardiac catheterization Social History (System 06/15/23 @ 15:01 by Cheyanne Pillai) Household Members: Spouse Are you a primary acute care occupational therapist to a significant other at home: No Do you presently have visiting nurse or other home services: No Patient Tobacco Use Status: Former Tobacco user Second Hand Smoke Exposure: No Review of Systems Const Details: - Neurological: Reports sharp, electrical-like pain on the left side of the upper gum, exacerbated by eating and talking; Denies pain during sleep. - Musculoskeletal: Reports joint pain in knees from time to time. - Weight: Reports weight gain. Physical Exam Neuro Other: Mental Status: Alert and oriented to person, place, and time. Normal attention. Normal spontaneous speech, fluency, and comprehension. No obvious issues with mood and memory. Affect is appropriate. Cranial Nerves: CN II: Visual garcia full to confrontation, visual acuity intact. CN III, IV, : Pupils equal, round, reactive to light and accommodation. Extraocular movements are normal. CN V: Facial sensation is normal. CN VII: Facial movements symmetrical. CN VIII: Hearing intact to bedside conversation is normal. CN IX, X: Palate elevates symmetrically. CN XI: Shoulder shrug and head turn symmetrical. CN XII: Tongue midline without atrophy or fasciculations. Motor: Bulk and tone normal in all extremities. No significant muscle weakness in arms and legs. No drift. Reflexes: Deep tendon reflexes 2+ and symmetric. Plantar response down-going bilaterally. Coordination: Zlusox-vn-ffeq and unfh-vz-kavg testing normal. No dysmetria. Gait and Station: No obvious gait abnormality. No ataxia or instability. Extrapyramidal: Full facial expressions and blinking. No rigidity. Movements are appropriate with no tremor or abnormality. Speech: Normal; no dysarthria or tremor. Assessment & Plan Assessment & Plan (1) Trigeminal neuralgia of left side of face: Code(s): G50.0 - Trigeminal neuralgia Category: Medical Plan Impression: Left trigeminal neuralgia Rec: a: Education b: MRI brain WWO c: Carbamazepine 100mg bid Orders: Orders MR head/brain wo/w con Today G50.0 - Trigeminal neuralgia Medications: New carbamazepine ER (Carbatrol) 100 mg PO BID 180 caps 0RF Coding Level of Care Code Tele New Pt Level 4 (89667) Diagnoses Trigeminal neuralgia of left side of face G50.0
--- OUTSIDE RECORDS SUMMARY | 2025-04-12 13:07 | XMS_ITS | Patient Health Record ---
Author Organization [facility] Address [address] [place] [address] Care Team Providers Care Deputy Chief Magistrate Name Role Phone Jerrell Laguerre MD Primary Care Provider Lowell Nevarez Unavailable [phone] Allergies Allergen (clinical drug ingredient) Drug/Non Drug Allergy documented on EMR Reaction Allergy Type Onset Date Status Biaxin Unknown Drug Allergy Active erythromycin Erythromycin headache, vomiting Drug Allergy Active Reason For Referral No Information Medications Medication SIG (Take, Route, Frequency, Duration) Notes Start Date End Date Status Calcium + D3 600-200 MG-UNIT Orally 11/01/2015 Active Levothyroxine Sodium 100 MCG TAKE 1 TABLET DAILY Oral; Duration: 90 Active Lovastatin Active Metoprolol Succinate ER 50 MG 1 tablet Orally Once a day Not-Taking Aspirin 81 MG 1 tablet Orally Once a day 11/01/2015 Not-Taking Ibuprofen 600 MG 1 tablet with food o r milk as needed Orally Three times a day; Duration: 30 Not-Taking Gabapentin 300 MG 1 capsule Orally Onc e a day; Duration: 10 days 06/11/2020 Not-Taking Walking Boot/Pneumatic As directed Wear Daily; Duration: Until further notice 07/02/2020 Active Physical Therapy . . . 2-3x/week; Duration: 3-4 weeks 08/02/2020 Active Immunizations Vaccine Route Administration Date Status Comme nts COVID-19 Moderna Vaccine Unknown 10/12/2020 Administere d COVID-19 Moderna Vaccine Unknown 11/09/2020 Administere d Social History Tobacco Use: Social History Observation Description Date Details (start date - stop date) Former Smoker NA - NA Tobacco Use/Smoking Question Answer Notes Are you a: former smoker When did you stop smoking? 1 year ago Additional Findings: Tobacco Non-User Ex-heavy c igarette smoker (20-30/day) Alcohol Screen Question Answer Notes Did you have a drink contain ing alcohol in the past year? Yes How often did you have a dri nk containing alcohol in the past year? Monthly or less (1 point) Points 1 Interpretation Negative Tobacco use other than smoking: Question Answer Notes Are you an other tobacco user? No Problems Problem Type SNOMED Code ICD Code Onset Dates Problem Status W/U Status Risk Notes Problem Pain in limb (35303997) Pain in unspecified toe(s) (M79.676) Active confirmed Problem Acquired hammer toe of right foot ([id number]) Other hammer toe(s) (acquired), right foot (M20.41) Active confirmed Problem Acquired hallux rigidus (6887061) Hallux rigidus, right foot (M20.21) Active confirmed Plan Of Treatment Pending Test Test Name Order Date X ray : Foot, left 2V 11/01/2015 X ray : Foot, right 2V 11/01/2015 X ray : Foot, right 3V 02/27/2020 X ray : Foot, right 3V 07/02/2020 X ray : Foot, right 3V 07/12/2020 X ray : Foot, right 3V 08/02/2020 X ray : Foot, right 3V 06/17/2021 Insurance Providers Payer Name Payer Address Payer Phone Subscriber Number Group Number Insured Name Patient Relationship to Insured Coverage Start Date Coverage End Date Medicare [employer] [address] [facility] [address] [id number] Marisol Holt Self - patient is the insured Med [employer] [facility] [address] [place] [address] [id number] Marisol Holt Self - patient is the insured Medical (General) History Medical History History ICD Code Arthritis Back,Hip,and Knee pain Cataracts Chicken pox Gall bladder problems Headaches Measles Mumps Scarlet fever Thyroid disorder Surgical History Surgery Date(Month/Year) Breast Reduction 1998 gall bladder 2000 appendectomy 2007 Right foot sirgery 06/27/20 Hospitalization History Reason Date(Month/Year) [facility]- sore throat, cold 04/2021 [facility], Bunion, [place] right foot 0
--- OUTSIDE RECORDS SUMMARY | 2025-04-12 13:07 | XMS_ITS | Patient Health Record ---
Author Organization [facility] Address [address] [place] [address] Care Team Providers Care Certified Legal Secretary Specialist Name Role Phone Carlotta PINEDA, Jerrell Primary Care Provider Tonio Gurrola Jr Unavailable [phone] Allergies Allergen (clinical drug ingredient) Drug/Non Drug Allergy documented on EMR Reaction Allergy Type Onset Date Status erythromycin Erythromycin severe headache Drug Allergy Active Reason For Referral No Information Medications Medication SIG (Take, Route, Frequency, Duration) Notes Start Date End Date Status MiraLax (colon prep) 17 GM/SCOOP mixed with Gatorade or Crystal Light Orally begin at 5:00 p.m. the day before the procedure for 1 day 04/01/2022 Active Levothyroxine Sodium 100 MCG Oral for 90 Active Losartan Potassium 50 MG Oral for 90 Active Immunizations Vaccine Route Administration Date Status Comme nts Influenza Unknown 04/01/2022 Refused Social History Tobacco Use: Social History Observation Description Date Details (start date - stop date) Never Smoker NA - NA Tobacco Use/Smoking Question Answer Notes Patient is a nonsmoker Alcohol Screen Question Answer Notes Did you have a drink contain ing alcohol in the past year? Yes How often did you have a dri nk containing alcohol in the past year? Monthly or less (1 point) How many drinks did you have on a typical day when you were drinking in the past year? 1 or 2 drinks (0 point) How often did you have 6 or more drinks on one occasion in the past year? Never (0 point) Points 1 Interpretation Negative Problems Problem Type SNOMED Code ICD Code Onset Dates Problem Status W/U Status Risk Notes Problem [id number] Colon cancer screening (Z12.11) Active confirmed Problem Diverticulosis of colon (407219225) Diverticulosis of colon (K57.30) Active confirmed Plan Of Treatment Future Test Test Name Order Date COLONOSCOPY 04/01/2022 Insurance Providers Payer Name Payer Address Payer Phone Subscriber Number Group Number Insured Name Patient Relationship to Insured Coverage Start Date Coverage End Date MED[place]ARE OF [place] [address] [place] [id number] BEVERLY MARTINEZ Self - patient is the insured MED[employer] ATT[employer] CLAIMS [address] [place] [address] [phone] [id number] BEVERLY MARTINEZ Self - patient is the insured Medical (General) History Medical History History ICD Code Elevated troponin at the time of appende ctomy, negative cardiac workup. 2007 hypertension Hypothyroidism Scarlet fever Surgical History Surgery Date(Month/Year) breast reduction 1998 cholecystectomy 1999 appendectomy 2008 right foot 06/2020
== END 2025-04-12 13:12 | disposition home or self-care (01) ==
LOC: HO.HSM 12:49
PROVIDERS: PCP Physician Assistant; Referring Provider Physician Assistant; Visit Provider Psychiatry & Neurology Neurology
DX: G50.0 Trigeminal neuralgia (principal)
CPT/HCPCS: 99204

== ENCOUNTER → 2025-04-12 12:48 | Outpatient (BNVA) | payer MEDICARE, SELFPAY | PROVIDERS: PCP Physician Assistant; Referring Provider Physician Assistant; Visit Provider Psychiatry & Neurology Neurology | DX: G50.0 Trigeminal neuralgia (principal) | CPT/HCPCS: 99202 ==

== ENCOUNTER → 2025-05-21 11:00 | Outpatient (BNV) | payer MEDICARE, SELFPAY | PROVIDERS: Visit Provider Radiology Diagnostic Radiology | DX: G50.0 Trigeminal neuralgia (principal) | CPT/HCPCS: 70553 ==

== ENCOUNTER 2025-05-21 11:08 | Outpatient (REF) | payer MEDICARE, SELFPAY ==
--- NOTE | ~2025-05-21 | MR_ITS ---
EXAMINATION: MR BRAIN WITHOUT AND WITH CONTRAST CLINICAL INFORMATION: Trigeminal neuralgia, left side. COMPARISON: None available. TECHNIQUE: Multiplanar, multisequence MRI of the brain was obtained before and after the intravenous administration of 8.5 mL Gadavist. A trigeminal protocol was utilized. Examination performed on a 1.5 Sherley Siemens high-field unit. FINDINGS: There is no diffusion restriction. There is no intracranial hemorrhage, acute infarction, mass effect, or edema. Ventricles, sulci, and cisterns are normal in size and configuration for patient age. No shift of midline. There is no abnormal hemosiderin deposition. There are a few scattered punctate foci of white matter T2 hyperintensity in the periventricular, subcortical, and hemispheric deep white matter. These foci are nonspecific but statistically most likely relate to small vessel ischemic changes. There is no abnormal intra or extra-axial contrast enhancement after the administration of gadolinium. There is normal CSF signal in the prepontine cistern, CP angle cisterns. Meckel's caves have a normal appearance. The 5th cranial nerves are normal in course and caliber. There is no abnormal cranial nerve enhancement. Of note, a branch of the left superior cerebellar artery does abut the cisternal segment of the left 5th nerve. Midline structures appear normally formed. The pituitary gland appears normal. Posterior fossa structures appear normal. Cerebellar tonsils are appropriately located. Major flow voids are preserved within the skull base. The globes and orbital contents demonstrate no abnormalities. There are bilateral lens replacements. Paranasal sinuses are clear bilaterally. The mastoids and tympanic cavities are normally aerated. Extracranial soft tissues demonstrate no abnormalities. No suspicious bone marrow changes are evident. There are mild to moderate degenerative changes in both TM joints. Atlantoaxial joint is demonstrates moderate to severe degenerative changes. MR/MR head/brain wo/w con IMPRESSION: 1. No evidence of intracranial hemorrhage, acute infarction, mass effect, or edema. No abnormal intra or extra-axial contrast enhancement. 2. The 5th cranial nerves and Meckel's caves image normally. Of note, a branch of the left superior cerebellar artery does abut the cisternal segment of the left 5th nerve. 3. Very mild changes of small vessel ischemia. Electronically signed by: Yvon Mcintyre MD 05/21/2025 12:58 PM EDT
--- OUTSIDE RECORDS SUMMARY | 2025-05-21 12:37 | XMS_ITS | Patient Health Record ---
Author Organization [facility] Address [address] [place] [address] Care Team Providers Care Security Infrastructure Engineer Name Role Phone Carlotta PINEDA, Jerrell Primary Care Provider Tonio Gurrola Jr Unavailable [phone] Allergies Allergen (clinical drug ingredient) Drug/Non [...] Problem Status W/U Status Risk Notes Problem [id number] Colon cancer screening (Z12.11) Active confirmed Problem Diverticulosis of colon (274721945) Diverticulosis of colon (K57.30) Active confirmed Plan Of Treatment Future Test Test Name Order Date COLONOSCOPY 04/01/2022 Insurance Providers Payer Name Payer Address Payer Phone Subscriber Number Group Number Insured Name Patient Relationship to Insured Coverage Start Date Coverage End Date [place] [address] [place] [id number] BEVERLY MARTINEZ Self - patient is the insured MED[employer] ATTN CLAIMS [address] [place] [address] [phone] [id number] BEVERLY MARTINEZ Self - patient is the insured Medical (General) History Medical History History ICD Code Elevated troponin at the time of appende ctomy, negative cardiac workup. 2007 hypertension Hypothyroidism Scarlet fever Surgical History Surgery Date(Month/Year) breast reduction 1998 cholecystectomy 1999 appendectomy 2008 right foot 06/2020
--- OUTSIDE RECORDS SUMMARY | 2025-05-21 12:37 | XMS_ITS | Patient Health Record ---
Author Organization [facility] Address [address] [place] [address] Care Team Providers Care Manager Room Name Role Phone Jerrell Laguerre MD Primary Care Provider Lowell Nevarez Unavailable [phone] Allergies Allergen (clinical drug ingredient) Drug/Non Drug [...] Status Risk Notes Problem Pain in limb (89546695) Pain in unspecified toe(s) (M79.676) Active confirmed Problem Acquired hammer toe of right foot (182235897717 9105) Other hammer toe(s) (acquired), right foot (M20.41) Active confirmed Problem Acquired hallux rigidus (7754550) Hallux rigidus, right foot (M20.21) Active confirmed [...] [employer] [address] [facility] [place] [address] [id number] Marisol Holt Self - patient is the insured Med [facility] [address] [place] [address] [id number] Marisol Holt Self - patient is the insured Medical (General) History Medical History History ICD Code Arthritis Back,Hip,and Knee pain Cataracts Chicken pox Gall bladder problems Headaches Measles Mumps Scarlet fever Thyroid disorder Surgical History Surgery Date(Month/Year) Breast Reduction 1998 gall bladder 2000 appendectomy 2007 Right foot sirgery 06/27/20 Hospitalization History Reason Date(Month/Year[place] [facility] [place], [place] [facility] [place] Hammertoe right foot 0
== END 2025-05-21 11:09 | disposition home or self-care (01) ==
LOC: HO.MRI 11:08
PROVIDERS: Visit Provider Psychiatry & Neurology Neurology
DX: G50.0 Trigeminal neuralgia (principal)
CPT/HCPCS: 70553; A9585

== ENCOUNTER 2025-05-29 11:13 | Outpatient (AMB) | payer MEDICARE, SELFPAY ==
--- NOTE | 2025-05-29 11:28 | A.OFFVIS_ITS ---
Intake Visit Reasons: f/u after MRI Allergies adhesive tape Adverse Reaction (Verified 12/22/24 18:01) Itching erythromycin base Adverse Reaction (Verified 12/22/24 18:01) headache, Vomiting HPI Comments Details: 79 years old woman with left-sided facial pain suggestive of trigeminal neuralgia initially seen in 2024. She is presenting with follow-up for management of trigeminal neuralgia. Past imaging did not find any tumors but identified a blood vessel near the nerve which may contribute to the condition. She has experienced episodes in the past that resolved without further intervention. Presently, her symptoms are well- managed with carbamazepine 100mg twice daily, with no new exacerbations or significant challenges reported during this course of treatment. [facility] Medical History (Updated 05/29/25 @ 11:31 by Zach Burden MD) Cramp of both lower extremities H/O scarlet fever No history of cellulitis Hypothyroidism HTN (hypertension) Surgical History History of bunionectomy H/O colonoscopy Hx of cholecystectomy Hx of bilateral breast reduction surgery Hx of appendectomy Hx of bilateral cataract extraction H/O cardiac catheterization Social History (System 06/15/23 @ 15:01 by Cheyanne Pillai) Household Members: Spouse Are you a primary health care administrator to a significant other at home: No Do you presently have visiting nurse or other home services: No Patient Tobacco Use Status: Former Tobacco user Second Hand Smoke Exposure: No Review of Systems Const Details: - Neurological: Reports symptomatic relief with current medication; denies any recent occurrences of severe pain episodes. Physical Exam Neuro Other: Mental Status: Alert and oriented to person, place, and time. Normal attention. Normal spontaneous speech, fluency, and comprehension. No obvious issues with mood and memory. Affect is appropriate. Cranial Nerves: CN II: Visual garcia full to confrontation, visual acuity intact. CN III, IV, : Pupils equal, round, reactive to light and accommodation. Extraocular movements are normal. CN V: Facial sensation is normal. CN VII: Facial movements symmetrical. CN VIII: Hearing intact to bedside conversation is normal. CN IX, X: Palate elevates symmetrically. CN XI: Shoulder shrug and head turn symmetrical. CN XII: Tongue midline without atrophy or fasciculations. Extrapyramidal: Full facial expressions and blinking. No rigidity. Movements are appropriate with no tremor or abnormality. Speech: Normal; no dysarthria or tremor. Assessment & Plan Assessment & Plan (1) Trigeminal neuralgia of left side of face: Comment: [place] [facility] [place] Minimal MVD, a branch of L vertebral artery abuts the trigeminal nerve Code(s): G50.0 - Trigeminal neuralgia Category: Medical Plan I discussed with the patient that her MRI did not show any tumors, but did identify a small blood vessel that might be compressing the nerve. We talked about how this contributes to her trigeminal neuralgia and opted to continue her current medication, carbamazepine 100mg twice daily, as it provides effective symptom control. I explained that surgery is an option, though not necessary at present given her stable condition. Informed her that if medication fails to control symptoms, further intervention might be considered. Additionally, we arranged for a follow-up appointment in six months to monitor her progress. Medications: Refilled carbamazepine ER (Carbatrol) 100 mg PO BID 180 caps 0RF Coding Level of Care Code Est Pt Level 4 (46002) Diagnoses Trigeminal neuralgia of left side of face G50.0
--- OUTSIDE RECORDS SUMMARY | 2025-05-29 14:02 | XMS_ITS | Patient Health Record ---
Author Organization [facility] Address [address] [place] [address] Care Team Providers Care Business Services Director Name Role Phone Jerrell Laguerre MD Primary Care Provider Lowell Willard [phone] Allergies Allergen (clinical drug ingredient) Drug/Non Drug [...] Status Risk Notes Problem Pain in limb (25107090) Pain in unspecified toe(s) (M79.676) Active confirmed Problem Acquired hammer toe of right foot ([id number] 9105) Other hammer toe(s) (acquired), right foot (M20.41) Active confirmed Problem Acquired hallux rigidus (6966852) Hallux rigidus, right foot (M20.21) Active confirmed [...] [employer] [address] [place] [address] [id number] Marisol Holt Self - patient is the insured Med [facility] [address] [place] [address] [phone] [id number] Marisol Holt Self - patient is the insured Medical (General) History Medical History History ICD Code Arthritis Back,Hip,and Knee pain Cataracts Chicken pox Gall bladder problems Headaches Measles Mumps Scarlet fever Thyroid disorder Surgical History Surgery Date(Month/Year) Breast Reduction 1998 gall bladder 2000 appendectomy 2007 Right foot sirgery 06/27/20 Hospitalization History Reason Date(Month/Year) [facility] [place], [place]2021 [facility] [place] Hammertoe right foot 0
--- OUTSIDE RECORDS SUMMARY | 2025-05-29 14:02 | XMS_ITS | Patient Health Record ---
Author Organization [facility] Address [address] [place] [address] Care Team Providers Care Diamond Saw Operator Name Role Phone Carlotta PINEDA, Jerrell Primary Care Provider Tonio Gurrola Jr Unavailable Allergies Allergen (clinical drug ingredient) Drug/Non Drug [...] Problem Status W/U Status Risk Notes Problem 496787370 Colon cancer screening (Z12.11) Active confirmed Problem Diverticulosis of colon (425761986) Diverticulosis of colon (K57.30) Active confirmed Plan Of Treatment Future Test Test Name Order Date COLONOSCOPY 04/01/2022 Insurance Providers Payer Name Payer Address Payer Phone Subscriber Number Group Number Insured Name Patient Relationship to Insured Coverage Start Date Coverage End Date [place] [address] [place] [id number] [phone] [id number] BEVERLY MARTINEZ Self - patient is the insured MED[employer] ATTN CLAIMS [address] [place] [address] [id number] BEVERLY MARTINEZ Self - patient is the insured Medical (General) History Medical History History ICD Code Elevated troponin at the time of appende ctomy, negative cardiac workup. 2007 hypertension Hypothyroidism Scarlet fever Surgical History Surgery Date(Month/Year) breast reduction 1998 cholecystectomy 1999 appendectomy 2008 right foot 06/2020
--- OUTSIDE RECORDS SUMMARY | 2025-05-29 14:02 | XMS_ITS | Continuity of Care Document ---
Author Organization [facility] [address] [place] [address] Phone [phone] Care Team Providers Care Equine Science Instructor Name Role Phone Jerrell Laguerre M.D. Care Team Information Rece iver [phone] Care Team Information Receive r [phone] Miranda Gregorio CNP Care Team Informatio n Junior Project Coordinator [phone] Problems Active Problems Provider Date Essential hypertension Jerrell Laguerre M.D. Ons et: 03/04/2022 Hypothyroidism Jerrell Laguerre M.D. Onset: Bilateral cramp of muscle of lower limbs Jerrell Laguerre M.D. Onset: 11/23/2023 Peripheral venous insufficiency GURDEEP Richardson Onset: 05/24/2024 Hyperlipidemia GURDEEP [place] Onset: 2024 Carcinoma of breast Miranda Gregorio CNP Onset: 03/19/2025 Social History Type Date Description Comments Sex Female Sex Unknown Tobacco Use Start: Unknown End: Unknown Quit Smoking Status Reviewed: 03/19/25 Quit ETOH Use Rarely consumes alcohol Tobacco Use Start: Unknown End: Unknown Patient is a former smoker in college Allergies and adverse reactions Active Allergies Criticality Reaction Severity Comments Date Erythromycin Unable to assess criticality 03/04/2022 Medications Active Medications SIG Qnty Indications Order ing Provider Date Levothyroxine [id number] Tablets One Tablet By Mouth Mon Through Sat, 1/2 Tablet On Sun 90tabs Miranda Gregorio CNP 07/30/2023 Vitamin D3 CompleteTablets Take 1 daily Jerrell Laguerre M.D. 03/04/2022 Losartan Woylzmlle85nz Tablets Take 1 Tablet By Mouth Every Day 90tabs Marce Michaels M.D. 03/04/2022 Vital Signs Date Vital Result Comment 03/19/2025 10:40am BP Systolic 130 mmHg BP Diastolic 80 mmHg Heart Rate 85 /min Height 63.5 inches 5'3.50 Weight 185.00 lb BMI (Body Mass Index) 32.3 kg/m2 Results Test Acquired Date Facility Test Result H/L Range Note CBC With Differential/ Platelet 10/17/2024 [facility] WBC 7.3 x10E3/uL 3.4-10.8 RBC 4.45 x10E6/uL 3.77-5.2 8 Hemoglobin 14.1 g/dL 11.1-15. 9 Hematocrit 42.6 % 34.0-46. 6 MCV 96 fL 79-97 MCH 31.7 pg 26.6-33. 0 MCHC 33.1 g/dL 31.5-35. 7 RDW 12.6 % 11.7-15. 4 Platelets 145 x10E3/uL Low 150-450 Neutrophils 57 % Not Estab. Lymphs 33 % Not Estab. Monocytes 6 % Not Estab. Eos 2 % Not Estab. Basos 1 % Not Estab. Immature Cells TNP Neutrophils (Absolute) 4.3 x10E3/uL 1.4-7.0 Lymphs (Absolute) 2.4 x10E3/uL 0.7-3.1 Monocytes(Absol u te) 0.4 x10E3/uL 0.1-0.9 Eos (Absolute) 0.2 x10E3/uL 0.0-0.4 Baso (Absolute) 0.1 x10E3/uL 0.0-0.2 Immature Granulocytes 1 % Not Estab. Immature Grans (Abs) 0.1 x10E3/uL 0.0-0.1 NRBC TNP Hematology Comments: Note: 1 TSH Rfx on Abnormal to Free T4 09/08/2024 [facility] TSH Rfx on Abnormal to Free T4 2.810 uIU/mL 0.450-4. 500 Lipid Panel 09/08/2024 [facility] Cholesterol, Total 187 mg/dL 100-199 Triglycerides 161 mg/dL High 0-149 HDL Cholesterol 52 mg/dL >39 VLDL Cholestero l Gavin 28 mg/dL 5-40 LDL Chol Calc ([facility]) 107 mg/dL High 0-99 LDL Calc Comment: TNP CBC With Differential/ Platelet 05/24/2024 [facility] WBC 7.0 x10E3/uL 3.4-10.8 RBC 4.42 x10E6/uL 3.77-5.2 8 Hemoglobin 14.4 g/dL 11.1-15. 9 Hematocrit 42.5 % 34.0-46. 6 MCV 96 fL 79-97 MCH 32.6 pg 26.6-33. 0 MCHC 33.9 g/dL 31.5-35. 7 RDW 12.7 % 11.7-15. 4 Platelets TNP x10E3/uL 2 Neutrophils 56 % Not Estab. Lymphs 34 % Not Estab. Monocytes 6 % Not Estab. Eos 2 % Not Estab. Basos 1 % Not Estab. Immature Cells TNP Neutrophils (Absolute) 4.0 x10E3/uL 1.4-7.0 Lymphs (Absolute) 2.4 x10E3/uL 0.7-3.1 Monocytes(Absol u te) 0.4 x10E3/uL 0.1-0.9 Eos (Absolute) 0.1 x10E3/uL 0.0-0.4 Baso (Absolute) 0.1 x10E3/uL 0.0-0.2 Immature Granulocytes 1 % Not Estab. Immature Grans (Abs) 0.0 x10E3/uL 0.0-0.1 NRBC TNP Hematology Comments: Note: 3 TSH+Free T4 05/24/2024 [facility] TSH 1.160 uIU/mL 0.450-4. 500 T4,Free(Direct) 1.45 ng/dL 0.82-1.7 7 Comp. Metabolic Panel (14) 11/23/2023 [facility] Glucose 90 mg/dL 70-99 BUN 16 mg/dL 8-27 Creatinine 0.65 mg/dL 0.57-1.0 0 eGFR 91 mL/min/1. 73 >59 BUN/Creatinine Ratio 25 12-28 Sodium 140 mmol/L 134-144 Potassium 4.6 mmol/L 3.5-5.2 Chloride 101 mmol/L 96-106 Carbon Dioxide, Total 25 mmol/L 20-29 Calcium 9.7 mg/dL 8.7-10.3 Protein, Total 6.6 g/dL 6.0-8.5 Albumin 4.3 g/dL 3.8-4.8 Globulin, Total 2.3 g/dL 1.5-4.5 A/G Ratio 1.9 1.2-2.2 Bilirubin, Total 0.3 mg/dL 0.0-1 .2 Alkaline Phosphatase 95 IU/L 44-121 Ast (Sgot) 25 IU/L 0-40 Alt (SGPT) 23 IU/L 0-32 CBC With Differential/ Platelet 11/23/2023 [facility] WBC 6.5 x10E3/uL 3.4-10.8 RBC 4.57 x10E6/uL 3.77-5.2 8 Hemoglobin 14.5 g/dL 11.1-15. 9 Hematocrit 42.4 % 34.0-46. 6 MCV 93 fL 79-97 MCH 31.7 pg 26.6-33. 0 MCHC 34.2 g/dL 31.5-35. 7 RDW 12.9 % 11.7-15. 4 Platelets 63 x10E3/uL Critical low 150-450 4 Neutrophils 57 % Not Estab. 5 Lymphs 36 % Not Estab. Monocytes 3 % Not Estab. Eos 3 % Not Estab. Basos 1 % Not Estab. Immature Cells TNP Neutrophils (Absolute) 3.7 x10E3/uL 1.4-7.0 Lymphs (Absolute) 2.3 x10E3/uL 0.7-3.1 Monocytes(Absol u te) 0.2 x10E3/uL 0.1-0.9 Eos (Absolute) 0.2 x10E3/uL 0.0-0.4 Baso (Absolute) 0.1 x10E3/uL 0.0-0.2 Immature Granulocytes TNP Immature Grans (Abs) TNP NRBC TNP Hematology Comments: Note: 6 TSH+Free T4 11/23/2023 [facility] TSH 2.760 uIU/mL 0.450-4. 500 T4,Free(Direct) 1.26 ng/dL 0.82-1.7 7 Lipid Panel 11/23/2023 [facility] Cholesterol, Total 219 mg/dL High 100-199 Triglycerides 264 mg/dL High 0-149 HDL Cholesterol 53 mg/dL >39 VLDL Cholestero l Gavin 46 mg/dL High 5-40 LDL Chol Calc ([facility]) 120 mg/dL High 0-99 Comment: TNP TSH 08/20/2022 [facility] TSH 0.60 uIU/mL (0.4-4.2 ) 1 Verified by microsco pic examination. 2 Unable to perform an accurate platelet count due to aggregation of the platelets. 3 Verified by microsco pic examination. 4 Actual platelet coun t may be somewhat higher than reported due to aggregation of platelets in this sample. 5 Occasional myelocyte seen on scanning. 6 Manual differential was performed. Procedures Date Code Description Status 03/19/2025 G0444 Annual Depression Screening, 15 Minutes Completed 03/19/2025 1101F Doc No Falls In Past Year Or Only 1 Without Injury In Past Year Completed Medical Devices Description No Information Available Encounters Type Date Location Provider Dx Diagnosis Office Visit 02/27/2025 12:49p Main Office Marce Michaels M.D. I10 Essential (primary) hypertension E78.5 Hyperlipidemia, unsp ecified Assessments Date Code Description Provider 03/19/2025 Z00.00 Encounter for ge neral adult medical examination without abnormal findings Miranda Gregorio CNP 03/19/2025 Z13.31 Encounter for screening for depression Miranda Gregorio CNP 03/19/2025 Z13.9 Encounter for screening, uns pecified Miranda Gregorio CNP 03/19/2025 I10 Essential hypertension Charlene Gregorio CNP 03/19/2025 E78.5 Hyperlipidemia, unspecified Miranda Gregorio, RAMON 03/19/2025 E03.9 Hypothyroidism, unspecified Miranda Gregorio CNP 03/19/2025 I87.2 Venous insuffici ency (chronic) (peripheral) Miranda Gregorio CNP 03/19/2025 E66.9 Obesity, unspecified Miranda Gregorio CNP 03/19/2025 D69.6 Thrombocytopenia, unspecifie d Miranda Gregorio CNP 03/19/2025 C50.911 Malignant neopla sm of unspecified site of right female breast Miranda Gregorio CNP 03/19/2025 Z71.89 Other specified counseling Joseph Gregorio CNP Plan of Treatment Future Appointment(s):* 09/24/2025 8:00 am - Miranda Gregorio CNP at Main Office 03/19/2025 - Miranda Gregorio CNP* Z00.00 Encounter for general adult medical examination without abnormal findings * Z13.31 Encounter for screening for depression * Z13.9 Encounter for screening, unspecified * I10 Essential hypertension * E78.5 Hyperlipidemia, unspecified * E03.9 Hypothyroidism, unspecified * I87.2 Venous insufficiency (chronic) (peripheral) * E66.9 Obesity, unspecified * D69.6 Thrombocytopenia, unspecified * C50.911 Malignant neoplasm of unspecified site of right female breast * Z71.89 Other specified counseling Functional Status Description No Information Available Mental Status Description No Information Available Referrals Refer to Reason for Referral Status Appt Krishna Gan MD Facial Pain Closed 04/12 [address] [facility] [address] [place] [address] [phone]
== END 2025-05-29 11:36 | disposition home or self-care (01) ==
LOC: HO.HSM 11:13
PROVIDERS: PCP Physician Assistant; Visit Provider Psychiatry & Neurology Neurology
DX: G50.0 Trigeminal neuralgia (principal)
CPT/HCPCS: 99214

== ENCOUNTER → 2025-05-29 11:13 | Outpatient (BNVA) | payer MEDICARE, SELFPAY | PROVIDERS: PCP Physician Assistant; Visit Provider Psychiatry & Neurology Neurology | DX: G50.0 Trigeminal neuralgia (principal) | CPT/HCPCS: 99212 ==